=== PATIENT | female | born 1965 | race Caucasian/White ===

== ENCOUNTER 2018-05-18 18:29 | Emergency (ER) | payer OTHER ==
[~2018-05-18] VITALS: Ht 154.9 cm; Wt 96.8 kg
[~2018-05-18 18:29] MED LIST: MULTIVITAMIN1 EAC2 PO
[2018-05-18 19:19] LABS: HEMATOCRIT 34.4 % (36.0-46.0); HEMOGLOBIN 11.8 G/DL (11.9-15.5); MCH 30.7 PG (29.0-34.0); MCHC 34.3 G/DL (30.0-36.0); MCV 89.6 FL (83-99); PLATELET COUNT 358 K/uL (156-360); RBC DIS.WIDTH-CV 12.2 % (11.8-14.6); RED BLOOD COUNT 3.84 M/uL (3.80-5.20); WHITE BLOOD COUNT 5.9 K/uL (4.1-10.2)
[2018-05-18 19:36] LABS: ALBUMIN 4.1 g/dL (3.2-4.8); CHLORIDE 102 mEq/L (99-109); SODIUM 138 mEq/L (136-147)
[2018-05-18 19:39] LABS: GLUCOSE 131 mg/dL (70-99); TOTAL PROTEIN 7.6 g/dL (6.4-8.3)
[2018-05-18 19:41] LABS: TOTAL BILIRUBIN 0.3 mg/dL (0.0-1.0)
[2018-05-18 19:42] LABS: ALKALINE PHOSPHATASE 88 IU/L (3-129); CREATININE 0.9 mg/dL (0.6-1.3); GFR ESTIMATE (CALCULATED) > 59 mL/min/
[2018-05-18 19:43] LABS: UREA NITROGEN (BUN) 9 mg/dL (9-23)
[2018-05-18 19:44] LABS: AST (GOT) 40 IU/L (2-34)
[2018-05-18 19:45] LABS: ALT (GPT) 48 IU/L (3-49)
[2018-05-18] MEDS ORDERED: CIPRO500 MG PO (22:39)
[2018-05-18] MEDS ORDERED: FLAGYL500 MG PO (22:39)
[2018-05-18 23:01] VITALS: BP 117/68
== END 2018-05-18 23:01 | disposition home or self-care (01) ==
LOC: EME 18:29
PROVIDERS: Nurse Practitioner Family
DX: K52.9 Noninfective gastroenteritis and colitis, unspecified (principal); E11.9 Type 2 diabetes mellitus without complications; M79.7 Fibromyalgia; F41.9 Anxiety disorder, unspecified; Z87.891 Personal history of nicotine dependence
CPT/HCPCS: 74177; 76856; 80053; 81003; 85027; 99281; 99285; J1885; J2405; J3010